=== PATIENT | female | born 1995 | race Caucasian/White ===

== ENCOUNTER 2022-03-28 09:01 | Emergency (ER) | payer OTHER ==
--- NOTE | 2022-03-28 10:55 | ED ---
URI HPI - General Chief Complaint: Upper Respiratory Infection Stated Complaint: Cough,Sore Throat Time Seen by Provider: 03/28/22 10:46 Source: patient, RN notes reviewed Mode of arrival: ambulatory Limitations: no limitations - History of Present Illness Initial Comments: This is a 26-year-old female who presents to the emergency department for coughing, congestion, a sore throat, and difficulty breathing. States that she got sick approximately one month ago. Her symptoms only improved slightly, then seemed to get much worse again. She feels like her throat is swollen, making it difficult to swallow. Also feels short of breath. She has exercise-induced asthma and no other respiratory disorders. She has been around her daughter who has similar symptoms. However, she states that everyone else around her who has been sick seems to get better aside from her and her daughter. Denies any chest pain, palpitations, abdominal pain, nausea, vomiting, diarrhea, back pain, or headaches. MD Complaint: fever, cough, sore throat, nasal congestion Onset/Timin -: month(s) Context: sick contacts - Related Data Home Medications Medication Instructions Recorded Confirmed lisinopriL [Zestril] 20 mg PO DAILY 03/28/22 03/28/22 Previous Rx's Medication Instructions Recorded Albuterol Sulfate [Albuterol 1 puff PO Q4-6H PRN #8.5 gm 03/28/22 Sulfate Hfa] Azithromycin [Zithromax] 250 mg PO DIRECTED 5 Days #6 tab 03/28/22 Promethazine/Dextromethorphan 5 ml PO Q4-6H PRN #473 ml 03/28/22 [Promethazine-Dm Syrup] predniSONE 50 mg PO DAILY 5 Days #5 tab 03/28/22 Allergies Allergy/AdvReac Type Severity Reaction Status Date / Time No Known Allergies Allergy Verified 03/28/22 11:57 Review of Systems ROS Statement: Those systems with pertinent positive or pertinent negative responses have been documented in the HPI. ROS Other: All systems not noted in ROS Statement are negative. Past Medical History Additional Past Medical History / Comment(s): arthrititis History of Any Multi-Drug Resistant Organisms: None Reported Past Surgical History: Adenoidectomy, Hysterectomy, Orthopedic Surgery, Tonsillectomy Additional Past Surgical History / Comment(s): laporscopic, wisdom teeth, broken nose Past Psychological History: No Psychological Hx Reported Smoking Status: Current some day smoker Past Alcohol Use History: Rare Past Drug Use History: None Reported General Exam Limitations: no limitations General appearance: alert, in no apparent distress Head exam: Present: atraumatic, normocephalic, normal inspection ENT exam: Present: TM's normal bilaterally, normal external ear exam, other (2+ tonsillar hypertrophy and pharyngeal erythema) Neck exam: Present: normal inspection. Absent: tenderness, meningismus, lymphadenopathy Respiratory exam: Present: wheezes Cardiovascular Exam: Present: regular rate, normal rhythm, normal heart sounds. Absent: systolic murmur, diastolic murmur, rubs, gallop, clicks Neurological exam: Present: alert, oriented X3, CN II-XII intact Psychiatric exam: Present: normal affect, normal mood Skin exam: Present: warm, dry, intact, normal color. Absent: rash Course Vital Signs 03/28/22 03/28/22 03/28/22 09:10 11:56 12:07 Temperature 98.2 F Pulse Rate 111 H 95 Respiratory 18 18 16 Rate Blood Pressure 124/82 O2 Sat by Pulse 98 Oximetry 03/28/22 03/28/22 12:19 12:34 Temperature 98.6 F Pulse Rate 96 91 Respiratory 16 20 Rate Blood Pressure 126/62 O2 Sat by Pulse 98 Oximetry Medical Decision Making - Medical Decision Making This is a 26-year-old female who presents emergency department for coughing, congestion, and shortness of breath. Was pt. sent in by a medical professional or institution? @ -No Did you speak to anyone other than the patient for history? @ -No Did you review nursing and triage notes? @ -Agree, accurate with regards to the patient's symptoms. Were old charts reviewed? @ -No Differential Diagnosis? @ -Influenza, Covid, allergic rhinitis, GERD, pneumonia, bronchitis, COPD, viral pharyngitis, streptococcal pharyngitis, X-rays interpreted by me (1pt min.)? @ -My interpretation identifies no localized consolidations or infiltrates. What testing was considered but not performed? (CT, X-rays, U/S, labs)? Why? @ -None What meds were considered but not given? Why? @ -There was the consideration of giving her a dose of Decadron here, however the decision was instead made to send in a prescription for a five-day course of prednisone to her pharmacy. Did you discuss the management of the patient with other professionals? @ -No Did you reconcile home meds? @ -No Was smoking cessation discussed for >3mins.? @ -No Was critical care preformed (if so, how long)? @ -No Were there social determinants of health that impacted care today? How? (Homelessness, low income, unemployed, alcoholism, drug addiction, transportation, low edu. Level, literacy, decrease access to med. care, skilled nursing, rehab)? @ -No Was there de-escalation of care discussed even if they declined? (Discuss DNR or withdrawal of care, Hospice)? @ -No What co-morbidities impacted this encounter? (DM, HTN, Smoking, COPD, CAD, Cancer, CVA, Hep., AIDS, mental health diagnosis, sleep apnea, morbid obesity)? @ -None Was patient admitted / discharged? @ -Discharged. Patient tested positive for influenza A. Chest x-ray obtained with my interpretation listed above. Duoneb breathing treatment administered, which she states was very helpful. Due to the duration of her symptoms, it is possible that she has developed a secondary bacterial infection. Prescription for azithromycin, promethazine DM cough syrup, albuterol inhaler, and prednisone provided with dosing instructions reviewed. Advised that the cough medication can be sedating and she should take this at night until she knows how it effects her. Drug Therapy requiring intensive monitoring for toxicity (Heparin, Nitro, Insulin, Cardizem)? @ -None Were any procedures done? @ -None Diagnosis/symptom? @ -Influenza A Acute, or Chronic, or Acute on Chronic? @ -Acute Uncomplicated (without systemic symptoms) or Complicated (systemic symptoms)? @ -Complicated due to her multiple symptoms Side effects of treatment? @ -Adverse reaction to the Azithromycin, promethazine DM cough syrup, albuterol inhaler, or prednisone prescribed. Exacerbation, Progression, or Severe Exacerbation] @ -Not applicable Poses a threat to life or bodily function? @ -My impact function if she feels too ill to perform daily tasks. Return precautions reviewed in depth, the patient is instructed to return to the emergency department with any new, worsening, or concerning symptoms. Patient verbalized understanding. This case was discussed in detail with the attending ED physician. Presentation, findings, and treatment plan discussed in detail as well. - Lab Data Lab Results 03/28/22 Range/Units 09:30 Influenza Type A (PCR) Detected A (Not Detectd) Influenza Type B (PCR) Not Detected (Not Detectd) RSV (PCR) Not Detected (Not Detectd) SARS-CoV-2 (PCR) Not Detected (Not Detectd) - Radiology Data Radiology results: report reviewed, image reviewed Disposition Clinical Impression: Influenza A Disposition: HOME SELF-CARE Instructions (If sedation given, give patient instructions): Influenza (ED) Additional Instructions: Return to the emergency department with any new, worsening, or concerning symptoms. Take the antibiotic and the steroid as prescribed for 5 days. Use the cough medicine every 4-6 hours as needed. This may make you drowsy and you should take it at night until you know how it affects you. The albuterol inhaler can also be used every 4-6 hours as needed for coughing and shortness of breath. Follow up with your primary care provider in 1-2 days. Prescriptions: Albuterol Sulfate [Albuterol Sulfate Hfa] 1 puff PO Q4-6H PRN #8.5 gm PRN Reason: Shortness Of Breath predniSONE 50 mg PO DAILY 5 Days #5 tab Promethazine/Dextromethorphan [Promethazine-Dm Syrup] 5 ml PO Q4-6H PRN #473 ml PRN Reason: Cough Azithromycin [Zithromax] 250 mg PO DIRECTED 5 Days #6 tab Is patient prescribed a controlled substance at d/c from ED?: No Referrals: None,Stated [Primary Care Provider] - 1-2 days
[2022-03-28] MEDS ORDERED: IPRATROPIUM-ALBUTEROL 3 ML NEB INHALATION STA (11:00)
--- NOTE | 2022-03-28 11:42 | XR ---
EXAMINATION TYPE: XR chest 2V DATE OF EXAM: 03/28/2022 11:29 AM COMPARISON: None TECHNIQUE: XR chest 2V Frontal and lateral views of the chest. CLINICAL INDICATION:Female, 26 years old with history of Cough, BERONICA; FINDINGS: Lungs/Pleura: There is no evidence of pleural effusion, focal consolidation, or pneumothorax. Pulmonary vascularity: Unremarkable. Heart/mediastinum: Cardiomediastinal silhouette is unremarkable. Musculoskeletal: No acute osseous pathology. Other: Right upper quadrant cholecystectomy clips. IMPRESSION: No acute cardiopulmonary disease/process.
[2022-03-28 12:34] VITALS: BP 126/62; PULSE 91; RESP 20; TEMP 98.6
== END 2022-03-28 12:34 | disposition home or self-care (01) ==
LOC: EC 09:01
DX: J10.1 Influenza due to other identified influenza virus with other respiratory manifestations (principal); F17.200 Nicotine dependence, unspecified, uncomplicated; Z20.822 Contact with and (suspected) exposure to COVID-19
CPT/HCPCS: 71046; 87636; 94640; 99284

== ENCOUNTER 2022-09-27 14:19 | Emergency (ER) | payer OTHER ==
[2022-09-27 14:38] VITALS: BP 160/75; PULSE 90; RESP 16; TEMP 98.1
[2022-09-27] MEDS ORDERED: ACET/COD 300 MG/30 MG STARTER PACK 6 TAB BTL PO STA (14:55)
[2022-09-27] MEDS ORDERED: HYDROcodone/APAP 5-325MG 1 EACH TAB PO STA (14:55)
--- NOTE | 2022-09-27 14:55 | ED ---
ENT HPI - General Chief complaint: Dental/Oral Stated complaint: dental pain/swelling Time Seen by Provider: 09/27/22 14:46 Source: patient, RN notes reviewed Mode of arrival: ambulatory Limitations: no limitations - History of Present Illness Initial comments: 27-year-old female presents emergency Department with chief complaint of dental pain. Patient states that she's been dealing with the last 2 weeks she is scheduled for neurosurgery states pain was unbearable. Denies any fevers or chills. Patient denies any known drug ALLERGIES she has been slight nausea noted swelling no other complaints - Related Data Home Medications Medication Instructions Recorded Confirmed lisinopriL [Zestril] 20 mg PO DAILY 03/28/22 03/28/22 Previous Rx's Medication Instructions Recorded Albuterol Sulfate [Albuterol 1 puff PO Q4-6H PRN #8.5 gm 03/28/22 Sulfate Hfa] Azithromycin [Zithromax] 250 mg PO DIRECTED 5 Days #6 tab 03/28/22 Promethazine/Dextromethorphan 5 ml PO Q4-6H PRN #473 ml 03/28/22 [Promethazine-Dm Syrup] predniSONE 50 mg PO DAILY 5 Days #5 tab 03/28/22 Amoxic-Pot Clav 875-125Mg 1 tab PO Q12HR #20 tab 09/27/22 [Augmentin 875-125] Ibuprofen [Motrin] 600 mg PO Q8HR PRN #20 tab 09/27/22 Ondansetron Odt [Zofran Odt] 4 mg PO Q8HR PRN #10 tab 09/27/22 Allergies Allergy/AdvReac Type Severity Reaction Status Date / Time No Known Allergies Allergy Verified 03/28/22 11:57 Review of Systems ROS Statement: Those systems with pertinent positive or pertinent negative responses have been documented in the HPI. ROS Other: All systems not noted in ROS Statement are negative. Past Medical History Past Medical History: Diabetes Mellitus, Hypertension Additional Past Medical History / Comment(s): arthrititis endometriosis History of Any Multi-Drug Resistant Organisms: None Reported Past Surgical History: Adenoidectomy, Hysterectomy, Orthopedic Surgery, Tonsillectomy Additional Past Surgical History / Comment(s): laporscopic, wisdom teeth, broken nose Past Psychological History: No Psychological Hx Reported Smoking Status: Current some day smoker Past Alcohol Use History: Rare Past Drug Use History: None Reported General Exam Limitations: no limitations General appearance: alert, in no apparent distress Head exam: Present: atraumatic, normocephalic, normal inspection Eye exam: Present: normal appearance, PERRL, EOMI. Absent: scleral icterus, conjunctival injection, periorbital swelling ENT exam: Present: mucous membranes moist, TM's normal bilaterally, normal external ear exam. Absent: normal oropharynx (Edematous, multiple dental caries no drainable abscess) Neck exam: Present: normal inspection, full ROM. Absent: tenderness, meningismus, lymphadenopathy Respiratory exam: Present: normal lung sounds bilaterally. Absent: respiratory distress, wheezes, rales, rhonchi, stridor Cardiovascular Exam: Present: regular rate, normal rhythm, normal heart sounds. Absent: systolic murmur, diastolic murmur, rubs, gallop, clicks Course Vital Signs 09/27/22 14:35 Temperature 98.1 F Pulse Rate 90 Respiratory 16 Rate Blood Pressure 160/75 O2 Sat by Pulse 98 Oximetry Medical Decision Making - Medical Decision Making Was pt. sent in by a medical professional or institution (, PA, ROSIN BARREL FILLER, urgent care, hospital, or jail...) When possible be specific @ -No Did you speak to anyone other than the patient for history (EMS, parent, family, police, friend...)? What history was obtained from this source @ -No Did you review nursing and triage notes (agree or disagree)? Why? @ -I reviewed and agree with nursing and triage notes Were old charts reviewed (outside hosp., previous admission, EMS record, old EKG, old radiological studies, urgent care reports/EKG's, jail records)? Report findings @ -No old charts were reviewed Differential Diagnosis (chest pain, altered mental status, abdominal pain women, abdominal pain men, vaginal bleeding, weakness, fever, dyspnea, syncope, headache, dizziness, GI bleed, back pain, seizure, CVA, palpatations, mental health, musculoskeletal)? @ -Dental infection, dental caries, dental abscess EKG interpreted by me (3pts min.). @ -None X-rays interpreted by me (1pt min.). @ -None done CT interpreted by me (1pt min.). @ -None done U/S interpreted by me (1pt. min.). @ -None done What testing was considered but not performed or refused? (CT, X-rays, U/S, labs)? Why? @ -None What meds were considered but not given or refused? Why? @ -None Did you discuss the management of the patient with other professionals (professionals i.e. , PA, ROSIN BARREL FILLER, lab, RT, psych nurse, group social worker, diving instructor, teacher, correctional program officer, case worker)? Give summary @ -No Was smoking cessation discussed for >3mins.? @ -No Was critical care preformed (if so, how long)? @ -No Were there social determinants of health that impacted care today? How? (Homelessness, low income, unemployed, alcoholism, drug addiction, transportation, low edu. Level, literacy, decrease access to med. care, nursing home, rehab)? @ -No Was there de-escalation of care discussed even if they declined (Discuss DNR or withdrawal of care, Hospice)? DNR status @ -No What co-morbidities impacted this encounter? (DM, HTN, Smoking, COPD, CAD, Ca ncer, CVA, ARF, Chemo, Hep., AIDS, mental health diagnosis, sleep apnea, morbid obesity)? @ -None Was patient admitted / discharged? Hospital course, mention meds given and route, prescriptions, significant lab abnormalities, going to OR and other pertinent info. @ -Discharge patient was placed on oral antibiotics given her multiple dental caries and concern for infection. Patient has appointment with oral surgeon Undiagnosed new problem with uncertain prognosis? @ -No Drug Therapy requiring intensive monitoring for toxicity (Heparin, Nitro, Insulin, Cardizem)? @ -No Were any procedures done? @ -No Diagnosis/symptom? @ -Dental pain Acute, or Chronic, or Acute on Chronic? @ -Acute Uncomplicated (without systemic symptoms) or Complicated (systemic symptoms)? @ -Uncomplicated. Side effects of treatment? @ -No Exacerbation, Progression, or Severe Exacerbation? @ -No Poses a threat to life or bodily function? How? (Chest pain, [place], [place], pneumonia, PE, COPD, DKA, ARF, appy, cholecystitis, CVA, Diverticulitis, Homicidal, Suicidal, threat to staff... and all critical care pts) @ -No Disposition Clinical Impression: Toothache Disposition: HOME SELF-CARE Condition: Stable Instructions (If sedation given, give patient instructions): Toothache (ED) Additional Instructions: Please return to the Emergency Department if symptoms worsen or any other concerns. Prescriptions: Amoxic-Pot Clav 875-125Mg [Augmentin 875-125] 1 tab PO Q12HR #20 tab Ibuprofen [Motrin] 600 mg PO Q8HR PRN #20 tab PRN Reason: Pain Ondansetron Odt [Zofran Odt] 4 mg PO Q8HR PRN #10 tab PRN Reason: Nausea Is patient prescribed a controlled substance at d/c from ED?: No Referrals: Nonstaff,Physician [Primary Care Provider] - 1-2 days Time of Disposition: 14:54
== END 2022-09-27 15:36 | disposition home or self-care (01) ==
LOC: EC 14:19
DX: K08.89 Other specified disorders of teeth and supporting structures (principal); E11.9 Type 2 diabetes mellitus without complications; I10 Essential (primary) hypertension; F17.200 Nicotine dependence, unspecified, uncomplicated; Z79.899 Other long term (current) drug therapy
CPT/HCPCS: 99283

== ENCOUNTER 2022-09-30 12:03 | Emergency (ER) | payer OTHER ==
[2022-09-30 12:09] VITALS: BP 136/88; PULSE 111; RESP 18; TEMP 98
[2022-09-30] MEDS ORDERED: KETOROLAC 15 MG/ML 1 ML VIAL IM STA (12:17)
--- NOTE | 2022-09-30 12:18 | ED ---
General Adult HPI - General Chief complaint: Dental/Oral Stated complaint: Dental pain Time Seen by Provider: 09/30/22 12:10 Source: patient Mode of arrival: ambulatory Limitations: no limitations - History of Present Illness Initial comments: 27-year-old female presents to the emergency department reporting dental pain. She had 25 teeth extracted yesterday. She is on Augmentin. States that they only gave her Motrin and Tylenol for pain control. She has been alternating these medications without any improvement. Requests something stronger for pain control. Denies fevers. Has minimal swelling. No sensation that her airway is closing off. No other alleviating, precipitating or modifying factors - Related Data Home Medications Medication Instructions Recorded Confirmed lisinopriL [Zestril] 20 mg PO DAILY 03/28/22 03/28/22 Previous Rx's Medication Instructions Recorded Albuterol Sulfate [Albuterol 1 puff PO Q4-6H PRN #8.5 gm 03/28/22 Sulfate Hfa] Azithromycin [Zithromax] 250 mg PO DIRECTED 5 Days #6 tab 03/28/22 Promethazine/Dextromethorphan 5 ml PO Q4-6H PRN #473 ml 03/28/22 [Promethazine-Dm Syrup] predniSONE 50 mg PO DAILY 5 Days #5 tab 03/28/22 Amoxic-Pot Clav 875-125Mg 1 tab PO Q12HR #20 tab 09/27/22 [Augmentin 875-125] Ibuprofen [Motrin] 600 mg PO Q8HR PRN #20 tab 09/27/22 Ondansetron Odt [Zofran Odt] 4 mg PO Q8HR PRN #10 tab 09/27/22 Acetaminophen-Codeine 300-30mg 1 tab PO Q4H PRN 3 Days #18 tablet 09/30/22 [Tylenol w/codeine #3] Allergies Allergy/AdvReac Type Severity Reaction Status Date / Time No Known Allergies Allergy Verified 09/30/22 12:05 Review of Systems ROS Statement: Those systems with pertinent positive or pertinent negative responses have been documented in the HPI. ROS Other: All systems not noted in ROS Statement are negative. Past Medical History Past Medical History: Diabetes Mellitus, Hypertension Additional Past Medical History / Comment(s): arthrititis endometriosis History of Any Multi-Drug Resistant Organisms: None Reported Past Surgical History: Adenoidectomy, Hysterectomy, Orthopedic Surgery, Tonsillectomy Additional Past Surgical History / Comment(s): laporscopic, wisdom teeth, broken nose,oralsurgery Past Psychological History: No Psychological Hx Reported Smoking Status: Current some day smoker Past Alcohol Use History: None Reported Past Drug Use History: Marijuana General Exam Limitations: no limitations General appearance: alert, in no apparent distress Head exam: Present: atraumatic, normocephalic, normal inspection Eye exam: Present: normal appearance, PERRL, EOMI. Absent: scleral icterus, conjunctival injection, periorbital swelling ENT exam: Present: other (No drooling, trismus, hoarseness or stridor. Several dental extractions. [address] No bleeding. no tongue swelling. Floor of mouth is soft. Posterior pharynx is clear. Uvula is midline.) Neck exam: Present: normal inspection. Absent: tenderness, meningismus, lymphadenopathy Respiratory exam: Present: normal lung sounds bilaterally. Absent: respiratory distress, wheezes, rales, rhonchi, stridor Course Vital Signs 09/30/22 12:05 Temperature 98 F Pulse Rate 111 H Respiratory 18 Rate Blood Pressure 136/88 O2 Sat by Pulse 98 Oximetry Medical Decision Making - Medical Decision Making Was pt. sent in by a medical professional or institution (ELIAS Glass, NURSE DISCHARGE, urgent care, hospital, or assisted...) When possible be specific @ -Dentist Did you speak to anyone other than the patient for history (EMS, parent, family, police, friend...)? What history was obtained from this source @ -No Did you review nursing and triage notes (agree or disagree)? Why? @ -I reviewed and agree with nursing and triage notes Were old charts reviewed (outside hosp., previous admission, EMS record, old EKG, old radiological studies, urgent care reports/EKG's, assisted records)? Report findings @ -Patient was previously in the hospital 4 days ago for dentalgia and was placed on antibiotics Differential Diagnosis (chest pain, altered mental status, abdominal pain women, abdominal pain men, vaginal bleeding, weakness, fever, dyspnea, syncope, headache, dizziness, GI bleed, back pain, seizure, CVA, palpatations, mental health, musculoskeletal)? @ -Ludwigs angina, osteomyelitis, dentalgia, dental abscess EKG interpreted by me (3pts min.). @ -Not done X-rays interpreted by me (1pt min.). @ -None done CT interpreted by me (1pt min.). @ -None done U/S interpreted by me (1pt. min.). @ -None done What testing was considered but not performed or refused? (CT, X-rays, U/S, labs)? Why? @ -None What meds were considered but not given or refused? Why? @ -None Did you discuss the management of the patient with other professionals (professionals i.e. DrIain, PA, NURSE DISCHARGE, lab, RT, psych nurse, hospice social worker, package maker, teacher, environmental health officer, case fitter)? Give summary @ -No Was smoking cessation discussed for >3mins.? @ -No Was critical care preformed (if so, how long)? @ -No Were there social determinants of health that impacted care today? How? (Homelessness, low income, unemployed, alcoholism, drug addiction, transportation, low edu. Level, literacy, decrease access to med. care, [facility], rehab)? @ -No Was there de-escalation of care discussed even if they declined (Discuss DNR or withdrawal of care, Hospice)? DNR status @ -No What co-morbidities impacted this encounter? (DM, HTN, Smoking, COPD, CAD, Cance r, CVA, ARF, Chemo, Hep., AIDS, mental health diagnosis, sleep apnea, morbid obesity)? @ -None Was patient admitted / discharged? Hospital course, mention meds given and route, prescriptions, significant lab abnormalities, going to OR and other pertinent info. @ -Upon arrival the patient was placed in the hallway 10. No signs of infection. Given Toradol for dental extraction pain. She will be placed on Tylenol 3's. She is taking Motrin at home. She is to alternate taking it every 4 hours for pain control. Follow up with her dentist and return for any new or worsening symptoms. Continue the antibiotics. Patient discharged in stable condition Undiagnosed new problem with uncertain prognosis? @ -No Drug Therapy requiring intensive monitoring for toxicity (Heparin, Nitro, Insulin, Cardizem)? @ -No Were any procedures done? @ -No Diagnosis/symptom? @ -Acute gum pain, status post multiple dental extraction Acute, or Chronic, or Acute on Chronic? @ -Acute Uncomplicated (without systemic symptoms) or Complicated (systemic symptoms)? @ -Uncomplicated Side effects of treatment? @ -Sedation, ALLERGIC reaction Exacerbation, Progression, or Severe Exacerbation? @ -No Poses a threat to life or bodily function? How? (Chest pain, [place], [place], pneumonia, PE, COPD, DKA, ARF, appy, cholecystitis, CVA, Diverticulitis, Homicidal, Suicidal, threat to staff... and all critical care pts) @ -No Disposition Clinical Impression: Pain in gums, H/O tooth extraction Disposition: HOME SELF-CARE Condition: Stable Instructions (If sedation given, give patient instructions): Toothache (ED) Additional Instructions: Take the Motrin 600 mg alternating with the Tylenol #3s every 4 hours. Follow- up with your dentist. return for any new or worsening symptoms Prescriptions: Acetaminophen-Codeine 300-30mg [Tylenol w/codeine #3] 1 tab PO Q4H PRN 3 Days #18 tablet PRN Reason: Pain Is patient prescribed a controlled substance at d/c from ED?: Yes When asked, does pt state using other controlled substances?: No If prescribed controlled substance>3 days was MAPS reviewed?: Prescribed <3 Days If opioid is for acute pain is fill amount 7 days or less?: Yes Referrals: Nonstaff,Physician [Primary Care Provider] - 1-2 days Time of Disposition: 12:28
== END 2022-09-30 12:44 | disposition home or self-care (01) ==
LOC: EC 12:03
DX: K08.89 Other specified disorders of teeth and supporting structures (principal); E11.9 Type 2 diabetes mellitus without complications; I10 Essential (primary) hypertension; F17.200 Nicotine dependence, unspecified, uncomplicated; F12.90 Cannabis use, unspecified, uncomplicated; Z98.818 Other dental procedure status; Z79.899 Other long term (current) drug therapy
CPT/HCPCS: 99283; 96372; J1885

== ENCOUNTER 2022-11-06 18:56 | Emergency (ER) | payer OTHER ==
[2022-11-06 19:01] VITALS: TEMP 98.4
[2022-11-06] MEDS ORDERED: KETOROLAC 15 MG/ML 1 ML VIAL IM STA (19:55)
[2022-11-06] MEDS ORDERED: ACETAMINOPHEN TAB 325 MG TAB PO STA (19:55)
[2022-11-06] MEDS ORDERED: BACITRACIN OINT 1 EACH PACKET TOPICAL ONE (20:01)
--- NOTE | 2022-11-06 20:07 | ED ---
General Adult HPI - General Chief complaint: Burn/Smoke Inhalation Stated complaint: Lt hand burn Time Seen by Provider: 11/06/22 19:06 Source: patient, RN notes reviewed Mode of arrival: ambulatory Limitations: no limitations - History of Present Illness Initial comments: 27-year-old female presents emergency Department with chief complaint of burn on her left hand. She states that she touched a hot simon taking it out of the oven. She reports that she ran her hand under cold water as soon as this happened. She reports no blistering to the hand. The hand is very painful. She did not take anything at home for the pain. She has no known medical problems as known medication ALLERGIES. - Related Data Home Medications Medication Instructions Recorded Confirmed lisinopriL [Zestril] 20 mg PO DAILY 03/28/22 03/28/22 Previous Rx's Medication Instructions Recorded Albuterol Sulfate [Albuterol 1 puff PO Q4-6H PRN #8.5 gm 03/28/22 Sulfate Hfa] Azithromycin [Zithromax] 250 mg PO DIRECTED 5 Days #6 tab 03/28/22 Promethazine/Dextromethorphan 5 ml PO Q4-6H PRN #473 ml 03/28/22 [Promethazine-Dm Syrup] predniSONE 50 mg PO DAILY 5 Days #5 tab 03/28/22 Amoxic-Pot Clav 875-125Mg 1 tab PO Q12HR #20 tab 09/27/22 [Augmentin 875-125] Ibuprofen [Motrin] 600 mg PO Q8HR PRN #20 tab 09/27/22 Ondansetron Odt [Zofran Odt] 4 mg PO Q8HR PRN #10 tab 09/27/22 Acetaminophen-Codeine 300-30mg 1 tab PO Q4H PRN 3 Days #18 tablet 09/30/22 [Tylenol w/codeine #3] Allergies Allergy/AdvReac Type Severity Reaction Status Date / Time No Known Allergies Allergy Verified 09/30/22 12:05 Review of Systems ROS Statement: Those systems with pertinent positive or pertinent negative responses have been documented in the HPI. ROS Other: All systems not noted in ROS Statement are negative. Past Medical History Past Medical History: Diabetes Mellitus, Hypertension Additional Past Medical History / Comment(s): arthrititis endometriosis History of Any Multi-Drug Resistant Organisms: None Reported Past Surgical History: Adenoidectomy, Hysterectomy, Orthopedic Surgery, Tonsillectomy Additional Past Surgical History / Comment(s): laporscopic, wisdom teeth, broken nose,oralsurgery Past Psychological History: No Psychological Hx Reported Smoking Status: Current some day smoker Past Alcohol Use History: None Reported Past Drug Use History: Marijuana General Exam Limitations: no limitations General appearance: alert, in no apparent distress Head exam: Present: atraumatic, normocephalic, normal inspection Eye exam: Present: normal appearance ENT exam: Present: normal exam, mucous membranes moist Neck exam: Present: normal inspection. Absent: tenderness, meningismus, lymphadenopathy Respiratory exam: Present: normal lung sounds bilaterally. Absent: respiratory distress, wheezes, rales, rhonchi, stridor Cardiovascular Exam: Present: regular rate, normal rhythm, normal heart sounds. Absent: systolic murmur, diastolic murmur, rubs, gallop, clicks Extremities exam: Present: normal inspection, full ROM, tenderness (Left palmar surface of the hand), normal capillary refill, other (Radial pulses 2+, normal cap refill, mild erythema to the palm of the left hand, blanching, no obvious blistering). Absent: pedal edema, joint swelling, calf tenderness Back exam: Present: normal inspection Neurological exam: Present: alert, oriented X3 Psychiatric exam: Present: normal affect, normal mood Skin exam: Present: warm, dry, intact, erythema (Mild erythema to the left palmar aspect of the hand, blanching) Course Vital Signs 11/06/22 11/06/22 18:58 20:23 Temperature 98.4 F Pulse Rate 107 H 83 Respiratory 20 22 Rate Blood Pressure 161/90 132/83 O2 Sat by Pulse 98 97 Oximetry Medical Decision Making - Medical Decision Making Was pt. sent in by a medical professional or institution (, PA, WIRER, urgent care, hospital, or correction...) When possible be specific @ -No Did you speak to anyone other than the patient for history (EMS, parent, family, police, friend...)? What history was obtained from this source @ -No Did you review nursing and triage notes (agree or disagree)? Why? @ -I reviewed and agree with nursing and triage notes Were old charts reviewed (outside hosp., previous admission, EMS record, old EKG, old radiological studies, urgent care reports/EKG's, correction records)? Report findings @ -No old charts were reviewed Differential Diagnosis (chest pain, altered mental status, abdominal pain women, abdominal pain men, vaginal bleeding, weakness, fever, dyspnea, syncope, headache, dizziness, GI bleed, back pain, seizure, CVA, palpatations, mental health, musculoskeletal)? @ -Burn, abrasion, laceration, rash, this list is not all-inclusive EKG interpreted by me (3pts min.). @ -None X-rays interpreted by me (1pt min.). @ -None done CT interpreted by me (1pt min.). @ -None done U/S interpreted by me (1pt. min.). @ -None done What testing was considered but not performed or refused? (CT, X-rays, U/S, labs)? Why? @ -None What meds were considered but not given or refused? Why? @ -None Did you discuss the management of the patient with other professionals (professionals i.e. , PA, WIRER, lab, RT, psych nurse, social welfare research worker, data recovery planner, teacher, sba business development officer, pillowcase folder)? Give summary @ -No Was smoking cessation discussed for >3mins.? @ -No Was critical care preformed (if so, how long)? @ -No Were there social determinants of health that impacted care today? How? (Homelessness, low income, unemployed, alcoholism, drug addiction, transportation, low edu. Level, literacy, decrease access to med. care, shelter, rehab)? @ -No Was there de-escalation of care discussed even if they declined (Discuss DNR or withdrawal of care, Hospice)? DNR status @ -No What co-morbidities impacted this encounter? (DM, HTN, Smoking, COPD, CAD, Cancer, CVA, ARF, Chemo, Hep., AIDS, mental health diagnosis, sleep apnea, morbid obesity)? @ -None Was patient admitted / discharged? Hospital course, mention meds given and route, prescriptions, significant lab abnormalities, going to OR and other pertinent info. @ -Discharged. Patient presented to emergency department chief complaint of left hand burn from taking the simon out of the oven. She reports that she rates her hand under water following this which helped. She did not take anything for pain at home. Patient given a Toradol shot and Tylenol. Bacitracin ointment was applied to the burn and the wound was dressed. Patient stable at time of discharge. Case discussed with my attending,Dr. Bennett. Undiagnosed new problem with uncertain prognosis? @ -No Drug Therapy requiring intensive monitoring for toxicity (Heparin, Nitro, Insulin, Cardizem)? @ -No Were any procedures done? @ -No Diagnosis/symptom? @ -Superficial burn Acute, or Chronic, or Acute on Chronic? @ -acute Uncomplicated (without systemic symptoms) or Complicated (systemic symptoms)? @ -uncomplicated Side effects of treatment? @ -No Exacerbation, Progression, or Severe Exacerbation? @ -No Poses a threat to life or bodily function? How? (Chest pain, [place], [place], pneumonia, PE, COPD, DKA, ARF, appy, cholecystitis, CVA, Diverticulitis, Homicidal, Suicidal, threat to staff... and all critical care pts) @ -No Disposition Clinical Impression: Superficial burn of left hand Disposition: HOME SELF-CARE Condition: Stable Additional Instructions: Take Tylenol and Motrin as needed for pain. Return to the emergency department for new or worsening symptoms. Is patient prescribed a controlled substance at d/c from ED?: No Referrals: Nonstaff,Physician [Primary Care Provider] - 1-2 days Time of Disposition: 20:06
[2022-11-06 20:24] VITALS: BP 132/83; PULSE 83; RESP 22
== END 2022-11-06 20:24 | disposition home or self-care (01) ==
LOC: EC 18:56
DX: T23.002A Burn of unspecified degree of left hand, unspecified site, initial encounter (principal); I10 Essential (primary) hypertension; E11.9 Type 2 diabetes mellitus without complications; F12.90 Cannabis use, unspecified, uncomplicated; F17.200 Nicotine dependence, unspecified, uncomplicated; Z79.899 Other long term (current) drug therapy
CPT/HCPCS: 99283; 96372; J1885

== ENCOUNTER 2023-05-03 08:32 | Emergency (ER) | payer BC, OTHER ==
--- NOTE | 2023-05-03 09:00 | ED ---
General Adult HPI - General Stated complaint: vomiting headache Time Seen by Provider: 05/03/23 08:59 Source: patient, RN notes reviewed Mode of arrival: ambulatory Limitations: no limitations - History of Present Illness Initial comments: 28-year-old female presents emergency department with chief complaint of nausea vomiting headache. Patient states that she did not follow-up last day or so. Patient states that she cannot stop vomiting she denies any hematemesis or coffee ground emesis. Patient states that this is caused her to have a headache. Patient denies any localized abdominal pain. - Related Data Home Medications Medication Instructions Recorded Confirmed lisinopriL [Zestril] 20 mg PO DAILY 03/28/22 03/28/22 Previous Rx's Medication Instructions Recorded Albuterol Sulfate [Albuterol 1 puff PO Q4-6H PRN #8.5 gm 03/28/22 Sulfate Hfa] Azithromycin [Zithromax] 250 mg PO DIRECTED 5 Days #6 tab 03/28/22 Promethazine/Dextromethorphan 5 ml PO Q4-6H PRN #473 ml 03/28/22 [Promethazine-Dm Syrup] predniSONE 50 mg PO DAILY 5 Days #5 tab 03/28/22 Amoxic-Pot Clav 875-125Mg 1 tab PO Q12HR #20 tab 09/27/22 [Augmentin 875-125] Ibuprofen [Motrin] 600 mg PO Q8HR PRN #20 tab 09/27/22 Ondansetron Odt [Zofran Odt] 4 mg PO Q8HR PRN #10 tab 09/27/22 Acetaminophen-Codeine 300-30mg 1 tab PO Q4H PRN 3 Days #18 tablet 09/30/22 [Tylenol w/codeine #3] Ondansetron Odt [Zofran Odt] 4 mg PO Q8HR PRN #10 tab 05/03/23 Allergies Allergy/AdvReac Type Severity Reaction Status Date / Time No Known Allergies Allergy Verified 05/03/23 08:59 Review of Systems ROS Statement: Those systems with pertinent positive or pertinent negative responses have been documented in the HPI. ROS Other: All systems not noted in ROS Statement are negative. Past Medical History Past Medical History: Diabetes Mellitus, Hypertension Additional Past Medical History / Comment(s): arthrititis endometriosis History of Any Multi-Drug Resistant Organisms: None Reported Past Surgical History: Adenoidectomy, Hysterectomy, Orthopedic Surgery, Tonsillectomy Additional Past Surgical History / Comment(s): laporscopic, wisdom teeth, broken nose,oralsurgery Past Psychological History: No Psychological Hx Reported Smoking Status: Current some day smoker Past Alcohol Use History: None Reported Past Drug Use History: Marijuana General Exam - General Exam Comments Initial Comments: Visual Physical Exam Vital signs reviewed General: Well-appearing, nontoxic, no acute distress. Head: Normocephalic, atraumatic Eyes: PERRLA, EOMI ENT: Airway patent Chest: Nonlabored breathing Skin: No visual rash, normal skin tone Neuro: Alert and oriented 3 Musculoskeletal: No gross abnormalities Limitations: no limitations General appearance: alert, in no apparent distress Head exam: Present: atraumatic, normocephalic, normal inspection ENT exam: Present: normal exam, mucous membranes moist Neck exam: Present: normal inspection. Absent: tenderness, meningismus, lympha denopathy Respiratory exam: Present: normal lung sounds bilaterally. Absent: respiratory distress, wheezes, rales, rhonchi, stridor Cardiovascular Exam: Present: regular rate, normal rhythm, normal heart sounds. Absent: systolic murmur, diastolic murmur, rubs, gallop, clicks GI/Abdominal exam: Present: soft, normal bowel sounds. Absent: distended, tenderness, guarding, rebound, rigid Course Vital Signs 05/03/23 05/03/23 05/03/23 08:54 10:58 11:39 Temperature 98.2 F 98.1 F 98.1 F Pulse Rate 94 90 94 Respiratory 16 18 18 Rate Blood Pressure 133/85 134/86 130/85 O2 Sat by Pulse 97 97 97 Oximetry Medical Decision Making - Medical Decision Making I completed the quick note portion of this chart signed Lowell Thomas PA-C Was pt. sent in by a medical professional or institution (ELIAS Glass, SHOT TUBE MACHINE TENDER, urgent care, hospital, or shelter...) When possible be specific @ -No Did you speak to anyone other than the patient for history (EMS, parent, family, police, friend...)? What history was obtained from this source @ -No Did you review nursing and triage notes (agree or disagree)? Why? @ -I reviewed and agree with nursing and triage notes Were old charts reviewed (outside hosp., previous admission, EMS record, old EKG, old radiological studies, urgent care reports/EKG's, shelter records)? Report findings @ -No old charts were reviewed Differential Diagnosis (chest pain, altered mental status, abdominal pain women, abdominal pain men, vaginal bleeding, weakness, fever, dyspnea, syncope, headache, dizziness, GI bleed, back pain, seizure, CVA, palpatations, mental health, musculoskeletal)? @ -COVID 19, RSV, influenza, pneumonia, acute bronchitis, URI, this list is not all inclusive EKG interpreted by me (3pts min.). @ -None X-rays interpreted by me (1pt min.). @ -None done CT interpreted by me (1pt min.). @ -None done U/S interpreted by me (1pt. min.). @ -None done What testing was considered but not performed or refused? (CT, X-rays, U/S, labs)? Why? @ -None What meds were considered but not given or refused? Why? @ -None Did you discuss the management of the patient with other professionals (professionals i.e. , PA, SHOT TUBE MACHINE TENDER, lab, RT, psych nurse, clinical social work aide, cook soup, t eacher, security flex officer, telephonic nurse case manager)? Give summary @ -No Was smoking cessation discussed for >3mins.? @ -No Was critical care preformed (if so, how long)? @ -No Were there social determinants of health that impacted care today? How? (Homelessness, low income, unemployed, alcoholism, drug addiction, transportation, low edu. Level, literacy, decrease access to med. care, prison, rehab)? @ -No Was there de-escalation of care discussed even if they declined (Discuss DNR or withdrawal of care, Hospice)? DNR status @ -No What co-morbidities impacted this encounter? (DM, HTN, Smoking, COPD, CAD, Cance r, CVA, ARF, Chemo, Hep., AIDS, mental health diagnosis, sleep apnea, morbid obesity)? @ -None Was patient admitted / discharged? Hospital course, mention meds given and route, prescriptions, significant lab abnormalities, going to OR and other pertinent info. @ -Discharge patient is COVID-19 positive. Patient discharged in stable condition return brands were discussed. Undiagnosed new problem with uncertain prognosis? @ -No Drug Therapy requiring intensive monitoring for toxicity (Heparin, Nitro, Insulin, Cardizem)? @ -No Were any procedures done? @ -No Diagnosis/symptom? @ -[COVID-19 Acute, or Chronic, or Acute on Chronic? @ -Acute Uncomplicated (without systemic symptoms) or Complicated (systemic symptoms)? @ -[uncomplicatefd Side effects of treatment? @ -[No Exacerbation, Progression, or Severe Exacerbation? @ -No Poses a threat to life or bodily function? How? (Chest pain, [place], [place], pneumonia, PE, COPD, DKA, ARF, appy, cholecystitis, CVA, Diverticulitis, Homicidal, Suicidal, threat to staff... and all critical care pts) @ -No - Lab Data Result diagrams: 05/03/23 08:59 05/03/23 08:59 Lab Results 05/03/23 05/03/23 05/03/23 Range/Units 08:59 08:59 08:59 WBC 6.4 (3.8-10.6) k/uL RBC 4.73 (3.80-5.40) m/uL Hgb 14.5 (11.4-16.0) gm/dL Hct 42.6 (34.0-46.0) % MCV 89.9 (80.0-100.0) fL MCH 30.6 (25.0-35.0) pg MCHC 34.1 (31.0-37.0) g/dL RDW 12.1 (11.5-15.5) % Plt Count 189 (150-450) k/uL MPV 8.4 Neutrophils % 88 % Lymphocytes % 3 % Monocytes % 8 % Eosinophils % 1 % Basophils % 0 % Neutrophils # 5.6 (1.3-7.7) k/uL Lymphocytes # 0.2 L (1.0-4.8) k/uL Monocytes # 0.5 (0-1.0) k/uL Eosinophils # 0.1 (0-0.7) k/uL Basophils # 0.0 (0-0.2) k/uL Sodium 139 (137-145) mmol/L Potassium 3.9 (3.5-5.1) mmol/L Chloride 107 (98-107) mmol/L Carbon Dioxide 20 L (22-30) mmol/L Anion Gap 12 mmol/L BUN 8 (7-17) mg/dL Creatinine 0.57 (0.52-1.04) mg/dL Est GFR (CKD-EPI)AfAm >90 (>60 ml/min/1.73 sqM) Est GFR (CKD-EPI)NonAf >90 (>60 ml/min/1.73 sqM) Glucose 152 H (74-99) mg/dL POC Glucose (mg/dL) (70-110) mg/dL POC Glu Mechanical Process Engineer ID Calcium 9.5 (8.4-10.2) mg/dL Total Bilirubin 0.5 (0.2-1.3) mg/dL AST 18 (14-36) U/L ALT 17 (4-34) U/L Alkaline Phosphatase 65 (38-126) U/L Total Protein 7.4 (6.3-8.2) g/dL Albumin 4.6 (3.5-5.0) g/dL Lipase 130 (23-300) U/L Influenza Type A (PCR) Not Detected (Not Detectd) Influenza Type B (PCR) Not Detected (Not Detectd) RSV (PCR) Not Detected (Not Detectd) SARS-CoV-2 (PCR) Detected A (Not Detectd) 05/03/23 Range/Units 09:06 WBC (3.8-10.6) k/uL RBC (3.80-5.40) m/uL Hgb (11.4-16.0) gm/dL Hct (34.0-46.0) % MCV (80.0-100.0) fL MCH (25.0-35.0) pg MCHC (31.0-37.0) g/dL RDW (11.5-15.5) % Plt Count (150-450) k/uL MPV Neutrophils % % Lymphocytes % % Monocytes % % Eosinophils % % Basophils % % Neutrophils # (1.3-7.7) k/uL Lymphocytes # (1.0-4.8) k/uL Monocytes # (0-1.0) k/uL Eosinophils # (0-0.7) k/uL Basophils # (0-0.2) k/uL Sodium (137-145) mmol/L Potassium (3.5-5.1) mmol/L Chloride (98-107) mmol/L Carbon Dioxide (22-30) mmol/L Anion Gap mmol/L BUN (7-17) mg/dL Creatinine (0.52-1.04) mg/dL Est GFR (CKD-EPI)AfAm (>60 ml/min/1.73 sqM) Est GFR (CKD-EPI)NonAf (>60 ml/min/1.73 sqM) Glucose (74-99) mg/dL POC Glucose (mg/dL) 150 H (70-110) mg/dL POC Glu Mechanical Process Engineer ID Brenda Leach Calcium (8.4-10.2) mg/dL Total Bilirubin (0.2-1.3) mg/dL AST (14-36) U/L ALT (4-34) U/L Alkaline Phosphatase (38-126) U/L Total Protein (6.3-8.2) g/dL Albumin (3.5-5.0) g/dL Lipase (23-300) U/L Influenza Type A (PCR) (Not Detectd) Influenza Type B (PCR) (Not Detectd) RSV (PCR) (Not Detectd) SARS-CoV-2 (PCR) (Not Detectd) Disposition Clinical Impression: COVID-19 Disposition: HOME SELF-CARE Condition: Stable Instructions (If sedation given, give patient instructions): COVID-19 (Coronavirus Disease 2019) (ED) Additional Instructions: Please return to the Emergency Department if symptoms worsen or any other concerns. Prescriptions: Ondansetron Odt [Zofran Odt] 4 mg PO Q8HR PRN #10 tab PRN Reason: Nausea Is patient prescribed a controlled substance at d/c from ED?: No Referrals: None,Stated [Primary Care Provider] - 1-2 days Time of Disposition: 11:06
[2023-05-03] MEDS: ONDANSETRON ODT 4 MG TAB PO STA (09:02)
[2023-05-03 09:04] VITALS: PULSE 94
[2023-05-03 09:08] LABS: Glucose,Whole Blood 150 mg/dL (70-110)
[2023-05-03 09:16] LABS: Basophils % (A) 0 %; Eosinophils # (A) 0.1 k/uL (0-0.7); Eosinophils % (A) 1 %; HCT 42.6 % (34.0-46.0); HGB 14.5 gm/dL (11.4-16.0); Lymphocytes # (A) 0.2 k/uL (1.0-4.8); Lymphocytes % (A) 3 %; MCH 30.6 pg (25.0-35.0); MCHC 34.1 g/dL (31.0-37.0); MCV 89.9 fL (80.0-100.0); Mean Platelet Volume 8.4; Monocytes # (A) 0.5 k/uL (0-1.0); Monocytes % (A) 8 %; Neutrophils # (A) 5.6 k/uL (1.3-7.7); Neutrophils % (A) 88 %; Platelet Count 189 k/uL (150-450); RBC 4.73 m/uL (3.80-5.40); RDW 12.1 % (11.5-15.5); WBC 6.4 k/uL (3.8-10.6)
[2023-05-03 09:53] LABS: ALT 17 U/L (4-34); AST 18 U/L (14-36); African American GFR (CKD) >90 (>60 ml/min/1.73 sqM); Albumin 4.6 g/dL (3.5-5.0); Alkaline Phosphatase 65 U/L (38-126); Anion Gap 12 mmol/L; Blood Urea Nitrogen 8 mg/dL (7-17); Calcium 9.5 mg/dL (8.4-10.2); Carbon Dioxide 20 mmol/L (22-30); Chloride 107 mmol/L (98-107); Glucose 152 mg/dL (74-99); Lipase 130 U/L (23-300); Non-African American GFR(CKD) >90 (>60 ml/min/1.73 sqM); Potassium 3.9 mmol/L (3.5-5.1); Sodium 139 mmol/L (137-145); Total Bilirubin 0.5 mg/dL (0.2-1.3); Total Protein 7.4 g/dL (6.3-8.2)
[2023-05-03] MEDS: SODIUM CHLORIDE 0.9% 1,000 ML IV ONE (10:15)
[2023-05-03] MEDS: SODIUM CHLORIDE 0.9% 500 ML 500 ML IV ONE (10:15)
[2023-05-03] MEDS: METOCLOPRAMIDE 5 MG/ML 2 ML VIAL IVP STA (10:24)
[2023-05-03] MEDS: diphenhydrAMINE 50 MG/ML 1 ML VIAL IVP STA (10:26)
[2023-05-03] MEDS: KETOROLAC 15 MG/ML 1 ML VIAL IVP STA (10:26)
[2023-05-03 11:55] VITALS: BP 130/85; RESP 18; TEMP 98.1
== END 2023-05-03 11:41 | disposition home or self-care (01) ==
LOC: EC 08:32
DX: U07.1 COVID-19 (principal); E11.9 Type 2 diabetes mellitus without complications; I10 Essential (primary) hypertension; F12.90 Cannabis use, unspecified, uncomplicated; F17.200 Nicotine dependence, unspecified, uncomplicated; Z79.899 Other long term (current) drug therapy
CPT/HCPCS: 36415; 80053; 83690; 85025; 87636; 99284; 96374; 96375 ×2; J1200; J2765; J1885